=== PATIENT | female | born 1985 | race Caucasian/White ===

== ENCOUNTER → 2023-11-27 15:24 | Outpatient (REF) | payer OTHER, SELFPAY | LOC: DHCBC MAIN 15:24 | PROVIDERS: ATTENDING PHYSICIAN Internal Medicine Cardiovascular Disease; FAMILY PHYSICIAN Family Medicine | DX: Z95.2 Presence of prosthetic heart valve (principal) | CPT/HCPCS: 93306 ==

== ENCOUNTER → 2023-12-11 09:25 | Outpatient (REF) | payer OTHER, SELFPAY | LOC: RCS 09:25 | PROVIDERS: ATTENDING PHYSICIAN Internal Medicine Cardiovascular Disease; FAMILY PHYSICIAN Family Medicine | DX: R42 Dizziness and giddiness (principal) | CPT/HCPCS: 93225; 93226 ==

== ENCOUNTER 2024-05-19 08:48 | Emergency (ER) | payer OTHER, SELFPAY ==
[2024-05-19 08:50] VITALS: BP 155/86
--- NOTE | 2024-05-19 09:28 | ED.GENMED ---
History of Present Illness
General
Chief Complaint: Headache
Source: patient
Time Seen by Provider: 05/19/24 09:12
History of Present Illness
History of Present Illness:
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 Patient was driving to work this morning when she started to experience blurred
vision and dizziness around 8:10am this morning. Patient describes the dizziness as feeling 'fuzzy' with trouble focusing. It felt like she was tilting to the left side. She then developed a headache. 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
. Her picked her up and drove her to the ED. Patient's visual symptoms have resolved. She currently reports a 6/10 headache primarily in the left temporal region with nausea. She has a history of similar dizzy episodes in the past but
nothing that has been this severe.
Past History
Past History
ED Past Medical History: Valvular disease (Aortic valvular disease) and Other (Coarctation of the aorta)
ED Past Surgical History: Cardiac (Aortic valve replacement, ascending aorta surgery)
Social History
Tobacco: Non-smoker
Alcohol: None
Phy Exam
General Physical Exam
General Presentation: well appearing and no apparent distress
General age: appears stated age
General Skin: warm
General Habitus: normal
General Mental: alert
ENT Exam
ENT Exam: normocephalic
Eye Exam
Eye Exam: PERRL, EOMI, conjunctiva normal and visual sesay normal
Cardiovascular Exam
Cardiovascular Exam: regular rate/rhythm and systolic murmur
Pulmonary Exam
Pulmonary Exam: lungs clear, no respiratory distress, no crackles and no wheezing
Neurological Exam
Neurological Exam: alert, CN II-XII intact, no motor deficits, no sensory deficits, speech normal and other (CN 2-12 intact. PERRL. EOMs intact. Visual sesay normal. 5/5 strength and sensation intact in all extremities. Negative drift x4. Normal
finger to nose and heel to caraballo bilaterally. )
NIH Stroke Score
Level of Consciousness: 0 - Alert
LOC questions: 0-Answers both correctly
LOC Commands: 0-Performs both correctly
Best Gaze: 0-Normal
Visual Sesay: 0=Normal, no visual loss
Facial palsy: 0=Normal, symmetrical
Motor - Right Arm: 0=No drift 10 seconds
Motor - Left Arm: 0=No drift 10 seconds
Motor - Right Le-No drift 5 seconds
Motor - Left Le-No drift 5 seconds
Limb Ataxia: 0-Absent
Sensation: 0-Normal
Best Language: 0-No aphasia
Dysarthria: 0-Normal
Extinction and Inattention: 0-No abnormality
Total Score:: 0
Roark Coma Scale
Eye Opening: Spontaneous
Verbal Response: Oriented
Motor Response: Obeys Commands
GCS Total Score: 15
Skin Exam
Skin Exam: normal color and warm/dry
Psychiatric Exam
Psychiatric Exam: other (Tearful during exam)
Course
Orders/Labs/Results
Orders:
Orders
05/19/24 09:26
Electrocardiogram (*1) Urgent
Reason for Study: Vertigo / Dizzy
CT Head W/o Iv Contrast Urgent
Comment:
Reason For Exam: Headache, dizziness
EKG- Treatment ONCE
0.9% Sodium Chloride 1000 ml [Nss] 1,000 ml IV BOLUS
Acetaminophen [Tylenol] 1,000 mg PO NOW STA
Ondansetron Injectable [Zofran] 4 mg IV NOW STA
Test Result ONCE
05/19/24 09:41
Ondansetron Injectable [Zofran] 4 mg .ROUTE .STK-MED ONE
05/19/24 09:44
Complete Blood Count/With Diff Urgent
Comprehensive Metabolic Panel Urgent
HCG, Serum Qualitative Screen Urgent
05/19/24 11:05
Diphenhydramine [Benadryl] 25 mg IV NOW STA
Ketorolac [Toradol] 15 mg IV NOW STA
Magnesium Sulfate 1 G/D5w [Magnesium Sulfate] 1 gm in 100 ml IV NOW
Metoclopramide [Reglan] 10 mg IV NOW STA
Abnormal Lab Results
05/19/24
09:44
Carbon Dioxide 21 L mmol/L
(22-30)
Glucose 104 H mg/dl
(70-99)
Albumin 3.0 L g/dl
(3.5-5.0)
05/19/24 09:44
05/19/24 09:44
Vital Signs
Initial and Last Documented VS:
Initial Vital Signs
Temp Pulse Resp BP Pulse Ox
98.3 F 72 18 155/86 99
05/19/24 08:50 05/19/24 08:50 05/19/24 08:50 05/19/24 08:50 05/19/24 08:50
Last Documented Vital Signs
Temp Pulse Resp BP Pulse Ox
98.3 F 72 18 127/79 96
05/19/24 08:50 05/19/24 08:50 05/19/24 08:50 05/19/24 10:00 05/19/24 10:15
MDM/Problems Addressed
Differential Diagnosis Includes:
38yoF here with a headache. She experienced blurred vision, 'fuzziness,' and felt like she was tilting to the L side while driving this morning. She then developed a headache. Visual symptoms currently resolved. VSS. She is tearful on exam but well
appearing. No focal deficits noted on exam. NIHSS 0. Differential diagnosis includes but is not limited to: complex migraine, electrolyte abnormality, CVA
Initial ED plan: Check CBC, CMP, HCG, EKG, and CT head. Tylenol, Zofran, and fluid bolus for symptoms.
*EKG
Interpreted by ED Provider?: Yes
EKG Intrepretation Date: 05/19/24
Heart Rate: 64
Rate: normal
Rhythm: sinus
[place]: normal axis
Interval: normal interval
QRS Pattern: right bundle branch block (incomplete)
Ischemia: no ischemia
*Critical Care Note
Total Time (30-74mins, 75-104mins- exclusive of procedures): Not Applicable
Update Note
Update Note:
Labs unremarkable including normal electrolytes and glucose. No ischemic changes on EKG. CT head is negative for acute intracranial abnormalities. There was no improvement in her headache with Tylenol. IV migraine cocktail was ordered. After
migraine cocktail, patient is feeling significantly improved. She only has a minimal headache currently. All other symptoms have resolved. She is stable for discharge. Unclear etiology of symptoms, ?complex migraine. She was advised to follow-up
with her PCP as well as neurology. ED return precautions discussed. She expressed understanding and is agreeable to plan. She was discharged in stable condition.
ED Attending Note
-
Portions of this chart may have been created with voice recognition software.� Occasional wrong word or��sound alike� substitutions may have occurred due to the inherent limitations of voice recognition software.
Discharge Plan
Departure
Patient Disposition: Home (Routine Discharge)
Date of Disposition: 05/19/24
Time of Disposition: 13:15
Patient with high blood pressure during this ER visit?: No
Discharge Problem:
Acute headache
Instructions: Headache, Adult (DC)
Prescriptions:
No Action
Tablet
1 tab PO DAILY
Zoloft
50 mg PO DAILY
acetaminophen 325 MG tablet
650 mg PO Q4HPRN PRN (Reason: mild pain) 0RF
ibuprofen 600 MG tablet
600 mg PO Q4HPRN PRN (Reason: moderate pain/cramps) 0RF
Referrals:
Parth Vaca MD [Active] -
Digna Santiago MD [Family Provider] -
Stand Alone Forms: Return to Work
Activity Restrictions/Additional Instructions:
Please call today to schedule follow-up appointments with your family doctor and neurology.
Return to the ER immediately with any new or worsening symptoms.
Interventions
Interventions:
*Risk Screen - Suicide Last Done: 05/19/24 08:50
*General Assessment Last Done: 05/19/24 09:48
*Neglect/Abuse Screening Last Done: 05/19/24 08:50
ED- Fall Risk Assessment Last Done: 05/19/24 09:49
*ED COVID-19 Vaccine History Last Done: 05/19/24 09:48
*Nursing Disposition Last Done: 05/19/24 13:31
ED- Neurological Assessment Last Done: 05/19/24 09:48
Discharge Date and Time
Discharge Date/Time: 05/19/24 13:32
Print Language: SINHALA
[2024-05-19 09:43] VITALS: BP 125/82
[2024-05-19] MEDS: NSS 1000 IV (09:46)
[2024-05-19] MEDS: ZOFRAN 4 MG IV (09:46)
[2024-05-19] MEDS: TYLENOL 1000 MG PO (09:46)
[2024-05-19 09:54] LABS: % Eosinophils 2.6 % (0-6); % Immature Granulocytes 0.4 % (0-0.5); % Lymphocytes 28.2 % (20.5-51.1); % Neutrophils 61.8 % (42.2-75.2); Absolute Basophils 0.1 10^3/uL (0-0.2); Absolute Eosinophils 0.2 10^3/uL (0-0.7); Absolute Lymphocytes 2.2 10^3/uL (1.2-3.4); Absolute Monocytes 0.5 10^3/uL (0.1-0.6); Absolute Neutrophils 4.7 10^3/uL (1.4-6.5); Hematocrit 39.6 % (37.0-47.0); Hemoglobin 13.1 g/dL (12.0-16.0); Mean Corp Hgb Conc. 33.1 g/dL (33.0-37.0); Mean Corpuscular Hgb 27.2 pg (27.0-31.0); Mean Corpuscular Volume 82.3 fL (81.0-99.0); Mean Platelet Volume 9.8 fL (7.4-10.4); Nucleated Red Blood Cells % 0 %; Platelet Count 254 10^3/uL (130-400); Red Blood Cell Count 4.81 10^6/uL (4.20-5.40); Red Cell Dist. Width 12.7 % (11.5-14.5); White Blood Cell Count 7.7 10^3/uL (4.8-10.8)
[2024-05-19 10:00] VITALS: BP 127/79
[2024-05-19 10:08] LABS: HCG, Serum Qualitative Screen Negative
[2024-05-19 10:11] LABS: ALT (SGPT) 20 U/L (0-35); AST (SGOT) 25 U/L (14-36); Alkaline Phosphatase 71 U/L (38-126); Blood Urea Nitrogen 17 mg/dl (7-17); Calcium 9.4 mg/dl (8.4-10.2); Carbon Dioxide 21 mmol/L (22-30); Chloride 104 mmol/L (98-107); Glucose 104 mg/dl (70-99); Potassium 4.3 mmol/L (3.5-5.1); Sodium 139 mmol/L (135-145); Total Bilirubin 0.3 mg/dl (0.2-1.3); Total Protein 7.5 g/dl (6.3-8.2); eGFR > 60.00
[2024-05-19] MEDS: MAGNESIUM SULFATE 100 IV (11:42)
[2024-05-19] MEDS: BENADRYL 25 MG IV (11:43)
[2024-05-19] MEDS: REGLAN 10 MG IV (11:43)
[2024-05-19] MEDS: TORADOL 15 MG IV (11:43)
== END 2024-05-19 13:32 | disposition home or self-care (01) ==
LOC: EMR 08:48
PROVIDERS: Physician Assistant; EMERGENCY PHYSICIAN Emergency Medicine; FAMILY PHYSICIAN Family Medicine
DX: R51.9 Headache, unspecified (principal); F41.9 Anxiety disorder, unspecified; Z95.2 Presence of prosthetic heart valve; I38 Endocarditis, valve unspecified
CPT/HCPCS: 99284; 96365; 96375; 70450; 80053; 84703; 85025; 93005

== ENCOUNTER → 2024-12-01 09:39 | Outpatient (REF) | payer OTHER, SELFPAY | LOC: RCS 09:39 | PROVIDERS: ATTENDING PHYSICIAN Internal Medicine Cardiovascular Disease | DX: Q23.1 Congenital insufficiency of aortic valve (principal) | CPT/HCPCS: 93017 ==

== ENCOUNTER → 2024-12-09 15:57 | Outpatient (REF) | payer OTHER, SELFPAY | LOC: RCS 15:57 | PROVIDERS: ATTENDING PHYSICIAN Internal Medicine Cardiovascular Disease | DX: Q23.1 Congenital insufficiency of aortic valve (principal) | CPT/HCPCS: 93306 ==

== ENCOUNTER → 2024-12-19 08:03 | Outpatient (REF) | payer OTHER, SELFPAY | LOC: HWRCS 08:03 | PROVIDERS: ATTENDING PHYSICIAN Internal Medicine Cardiovascular Disease | DX: I99.8 Other disorder of circulatory system (principal); Q23.1 Congenital insufficiency of aortic valve; R42 Dizziness and giddiness; I77.810 Thoracic aortic ectasia | CPT/HCPCS: 78452; 93017; A9500 ==

== ENCOUNTER → 2025-06-23 10:29 | Outpatient (REF) | payer OTHER, SELFPAY | LOC: RCS 10:29 | PROVIDERS: ATTENDING PHYSICIAN Internal Medicine Cardiovascular Disease; FAMILY PHYSICIAN Family Medicine | DX: R00.2 Palpitations (principal) | CPT/HCPCS: 93225; 93226 ==